=== PATIENT | male | born 1955 | race Two or more races ===

== ENCOUNTER 2019-12-25 08:40 | Day surgery (SDC) | payer OTHER | END 2019-12-25 14:35 | disposition home or self-care (01) | LOC: AMB-ENDOS 08:40 | PROVIDERS: ATTEND Surgery | DX: D12.2 Benign neoplasm of ascending colon (principal); D12.3 Benign neoplasm of transverse colon ==

== ENCOUNTER 2019-12-31 20:05 | Emergency (ER) | payer OTHER ==
[~2019-12-31] VITALS: Ht 170.2 cm; Wt 94.3 kg
[2019-12-31] MEDS ORDERED: XARELTO10 MG (21:00)
[2019-12-31] MEDS ORDERED: HORSE CHESTNUT (21:00)
[2019-12-31] MEDS ORDERED: IBERSARTAN 150 MG. (21:01)
== END 2019-12-31 23:57 | disposition home or self-care (01) ==
LOC: ER 20:05
DX: K91.840 Postprocedural hemorrhage of a digestive system organ or structure following a digestive system procedure (principal); K62.5 Hemorrhage of anus and rectum